=== PATIENT | female | born 1940 | race Caucasian/White ===

== ENCOUNTER 2024-01-27 07:35 | Inpatient (IN) | payer MEDICARE, OTHER, SELFPAY ==
[2024-01-06 11:57] LABS: Hematocrit 31.3 % (37.0-47.0); Mean Corp Hgb Conc. 31.9 g/dL (33.0-37.0); Mean Corpuscular Hgb 27.3 pg (27.0-31.0); Mean Corpuscular Volume 85.5 fL (81.0-99.0); Mean Platelet Volume 9.4 fL (7.4-10.4); Platelet Count 293 10^3/uL (130-400); Red Blood Cell Count 3.66 10^6/uL (4.20-5.40); Red Cell Dist. Width 15.9 % (11.5-14.5); White Blood Cell Count 6.5 10^3/uL (4.8-10.8)
[2024-01-06 12:17] LABS: ALT (SGPT) 15 U/L (0-35); AST (SGOT) 19 U/L (14-36); Alkaline Phosphatase 101 U/L (38-126); Blood Urea Nitrogen 22 mg/dl (7-17); Calcium 9.4 mg/dl (8.4-10.2); Carbon Dioxide 28 mmol/L (22-30); Chloride 100 mmol/L (98-107); Glucose 120 mg/dl (70-99); Potassium 4.2 mmol/L (3.5-5.1); Sodium 141 mmol/L (135-145); Total Bilirubin 0.5 mg/dl (0.2-1.3); Total Protein 6.5 g/dl (6.3-8.2); eGFR > 60.00
[2024-01-06 14:01] VITALS: BMI 29.3
[2024-01-07 10:21] LABS: Glycohemoglobin (HgbA1c) 6.3 % (4.0-5.6)
[2024-01-21 11:47] VITALS: BMI 29.3
[2024-01-27] VITALS (22 sets, daily range): BP systolic 111–151; BP diastolic 63–80; O2SAT 93; BMI 29.3
[2024-01-27] MEDS: TYLENOL 1000 MG PO (07:48)
[2024-01-27] MEDS: CELEBREX 200 MG PO (07:48)
--- NOTE | 2024-01-27 07:51 | PTCARENOTE ---
No IVF due to the IVF shortage.
[2024-01-27] MEDS: TYLENOL 650 MG PO ×3 (13:16→20:02)
[2024-01-27] MEDS: DILAUDID 0.25 MG IV (13:18)
[2024-01-27] MEDS: NSS 1000 IV (13:45)
--- NOTE | 2024-01-27 14:20 | PTCARENOTE ---
Pt received from the PACU via bed. Transport was w/o incident. Pt is AAOx3, HRR, lungs are clear, resp. easy. Pulse ox 96% 2Lnc. Pt's right shoulder with Prima seal dressing C/D/I. No drainage noted at this time. Sling to right arm maintained as
ordered. Ice pack to be used as ordered. Pt instructed on plan of care. Pt verbalized understanding of instructions. Pt denies nausea or pain at this time. Call pabon is within reach.
--- NOTE | 2024-01-27 15:17 | W.PN.ORTHO ---
Today's Communication / Plan
-
D/c when clinically stable.
Assessment
.
Distal Motor Intact: Yes
Dressing:
Clean, dry and intact.
Assessment:
R shoulder OA s/p R Reverse HEATH w/ Dr Chavira 01/27/24
- s/p L Reverse HEATH w/ Dr Chavira 11/15/22
- s/p L TKA, 1999, at an outside facility
DVT prophylaxis - Eliquis at modified dosing, b/l venous foot pumps
- Eliquis 5 mg PO BID to be resumed POD 3 if hemodynamically stable
R sided CP in PACU, improving per pt - sounds related to nerve block as described as 'heaviness' - will order EKG, troponin x3 to r/o cardiac cause
HTN - continue Carvedilol - monitor BP
PAF in the setting of [place] and PACs, asymptomatic - monitor on tele
- Continue BB
- Eliquis as stated above
CAD/[place], 2019, status post PCI with Xience stents x3 - continue statin
- Continue ASA
Remote DVT provoked by
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
- Resume Eliquis as stated above
- Promote frequent and early ambulation as tolerated
Asthma, mild and persistent, and COPD per records - monitor O2
- IS
CVA, >10 years, with residual intermittent dysarthria - continue ASA
GERD - continue PPI therapy
Lower GI bleed, 05/2015, status post blood transfusion - minimize NSAIDs
Peripheral neuropathy - consider Gabapentin or Lyrica
Multifactorial anemia (iron and B12 def) - H&H in AM
- Was advised PO iron by heme but non-compliant; will order IV iron
Pre-operative MRSA positive nasal swab - IV Vanco in addition to IV Ancef
- Contact precautions
- Started on nasal Mupirocin pre-op -> will advise she continue x2 weeks post-surgery as incision is healing
Hyperlipidemia
History of syncope, status post LINQ monitor
Pulmonary nodule
Chronic LATHAM
Hiatal hernia with dysphagia, status post repai
Colon polyps
Multilevel degenerative disc disease
Spinal stenosis
Hypothyroidism with previous Synthroid use
History of recurrent UTIs
Sinus polyps
Osteopenia
ESBL UTI, 04/2019, treated with Levaquin
Prediabetes, A1c 6.3
Has prophylactic Cefadroxil and Compazine prn for d/c
Plan
.
Surgery / Date: R Reverse TSA w/ Dr Chavira 01/27/24
DVT Prophylaxis: Other (Eliquis )
Activity:
Out of bed.
PT/OT
Discharge Plan: Home
Subjective
.
.:
Patient resting comfortably in her room.
Reported R sided chest pain post-procedure, improving w/ pain meds.
Denies any other new complaints.
Vital Signs and Labs
.
Vital Signs and Labs:
Lab Results
01/06/24 11:42
01/06/24 11:42
Temp Pulse Resp BP Pulse Ox
97.4 F 81 16 145/77 96
01/27/24 07:22 01/27/24 07:22 01/27/24 07:22 01/27/24 07:22 01/27/24 07:22
Physical Exam
-
HEENT: No pallor, cyanosis, or jaundice. Throat clear.
NECK: Supple. No JVD.
RESPIRATORY: Lungs clear to auscultation.
CVS: S1, S2 normal. RRR.�
ABDOMEN: Soft, non-tender. No distension.
EXTREMITIES: +RUE sling. Good janitor and radial pulse. Able to wiggle fingers b/l. Strength equal, no calf pain with palpation/dorsiflexion. Calves soft.
SPECIAL EDUCATION TEACHERS: AOx3. No focal deficits. foreign exchange dealer grossly intact
[2024-01-27] MEDS: FERRLECIT 110 MG IV (15:47)
[2024-01-27] MEDS: ANCEF 5 IV (16:15)
[2024-01-27] MEDS: MYRBETRIQ EXTENDED RELEASE 50 MG PO (16:16)
[2024-01-27] MEDS: PROTONIX 40 MG PO (16:16)
[2024-01-27 17:24] LABS: Troponin I < 0.012 ng/ml
[2024-01-27] MEDS: SENOKOT PO (20:00)
[2024-01-27] MEDS: COREG 6.25 MG PO (20:02)
[2024-01-27] MEDS: DECADRON 4 MG PO (20:02)
[2024-01-27] MEDS: COLACE 100 MG PO (20:02)
[2024-01-27] MEDS: ELIQUIS 2.5 MG PO (20:02)
[2024-01-27] MEDS: BACTROBAN 2% OINTMENT 1 APPLIC NASAL (20:03)
[2024-01-27] MEDS: ROXICODONE 5 MG PO (20:12)
[2024-01-27] MEDS: VANCOCIN 200 IV (21:58)
[2024-01-27] MEDS: LIPITOR 40 MG PO (21:59)
[2024-01-27 23:24] LABS: Troponin I < 0.012 ng/ml
[2024-01-28] MEDS: ANCEF 5 IV (00:25)
[2024-01-28] MEDS: TYLENOL 650 MG PO ×3 (00:25→12:31)
[2024-01-28 03:36] VITALS: BP 133/74
[2024-01-28 04:09] LABS: Hematocrit 25.4 % (37.0-47.0); Hemoglobin 8.1 g/dL (12.0-16.0)
[2024-01-28 04:45] LABS: Troponin I < 0.012 ng/ml
[2024-01-28] MEDS: TYLENOL PO (04:51)
[2024-01-28 07:22] VITALS: BP 128/68
[2024-01-28] MEDS: BACTROBAN 2% OINTMENT 1 APPLIC NASAL (08:31)
[2024-01-28] MEDS: COLACE 100 MG PO (08:32)
[2024-01-28] MEDS: COREG 6.25 MG PO (08:32)
[2024-01-28] MEDS: ELIQUIS 2.5 MG PO (08:33)
[2024-01-28] MEDS: LOW STRENGTH ASPIRIN 81 MG PO (08:33)
[2024-01-28] MEDS: PROTONIX 40 MG PO (08:33)
[2024-01-28] MEDS: SENOKOT 17.2 MG PO (08:33)
[2024-01-28] MEDS: DECADRON 4 MG PO (08:33)
[2024-01-28] MEDS: VITAMIN D3 (cholecalciferol) 25 MCG PO (08:34)
[2024-01-28] MEDS: MYRBETRIQ EXTENDED RELEASE 50 MG PO (08:59)
[2024-01-28 09:36] VITALS: BMI 29.3
--- NOTE | 2024-01-28 10:10 | W.PN.ORTHO ---
Today's Communication / Plan
-
Await OT recs.
D/c later today if remaining clinically stable.
Assessment
.
Dressing:
Clean, dry and intact.
Assessment:
R shoulder OA s/p R Reverse HEATH w/ Dr Chavira 01/27/24
- s/p L Reverse TSA w/ Dr Chavira 11/15/22
- s/p L TKA, 1999, at an outside facility
DVT prophylaxis - Eliquis at modified dosing, b/l venous foot pumps
- Eliquis 5 mg PO BID to be resumed POD 3 since hemodynamically stable
R sided CP in PACU, improving per pt - likely related to nerve block as described as 'heaviness' - EKG unchanged, troponin x3 negative to r/o cardiac cause
HTN - continue Carvedilol - BPs stable
PAF in the setting of [place] and PACs, asymptomatic - maintaining NSR on tele
- Continue BB
- Eliquis as stated above
CAD/[place], 2019, status post PCI with Xience stents x3 - continue statin
- Continue ASA
Remote DVT provoked by
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
- Resume Eliquis as stated above
- Promote frequent and early ambulation as tolerated
Asthma, mild and persistent, and COPD per records - O2 stable on RA
- IS
CVA, >10 years, with residual intermittent dysarthria - continue ASA
GERD - continue PPI therapy
Lower GI bleed, 05/2015, status post blood transfusion - minimize NSAIDs
Peripheral neuropathy - consider Gabapentin or Lyrica
Multifactorial anemia (iron and B12 def) - H&H 8.1 POD 1
- s/p IV iron x1; did advise compliance w/ PO iron daily per heme
- Asymptomatic, hemodynamically stable
Pre-operative MRSA positive nasal swab - IV Vanco in addition to IV Ancef
- Contact precautions
- Started on nasal Mupirocin pre-op -> will advise she continue x2 weeks post-surgery as incision is healing
Hyperlipidemia
History of syncope, status post LINQ monitor
Pulmonary nodule
Chronic LATHAM
Hiatal hernia with dysphagia, status post repai
Colon polyps
Multilevel degenerative disc disease
Spinal stenosis
Hypothyroidism with previous Synthroid use
History of recurrent UTIs
Sinus polyps
Osteopenia
ESBL UTI, 04/2019, treated with Levaquin
Prediabetes, A1c 6.3
Has prophylactic Cefadroxil and Compazine prn for d/c
Plan
.
Surgery / Date: R Reverse TSA w/ Dr Chavira 01/27/24
DVT Prophylaxis: Other (Eliquis )
Activity:
Out of bed.
PT/OT
Discharge Plan: Home
Subjective
.
.:
Patient resting comfortably in bed this AM.
R shoulder pain overall well tolerated w/ current pain meds.
Chest pain reported yesterday resolved - EKG unchanged, troponin x3 negative.
Eager for possible d/c today.
Vital Signs and Labs
.
Vital Signs and Labs:
Lab Results
01/28/24 03:59
01/06/24 11:42
Temp Pulse Resp BP Pulse Ox
98.2 F 93 14 128/68 98
01/28/24 07:22 01/28/24 08:32 01/28/24 07:22 01/28/24 08:32 01/28/24 08:40
Non-invasive Hgb result: 10.3
Physical Exam
-
HEENT: No pallor, cyanosis, or jaundice. Throat clear.
NECK: Supple. No JVD.
RESPIRATORY: Lungs clear to auscultation.
CVS: S1, S2 normal. RRR.� No murmur, rub or gallop.
ABDOMEN: Soft, non-tender. No distension.
EXTREMITIES: + RUE sling. Good hydraulic modeling engineer/radial pulses b/l. Able to wiggle fingers b/l. Strength equal, no calf pain with palpation/dorsiflexion.
STUDIO PRODUCER: AOx3. No focal deficits. through operator grossly intact
[2024-01-28 10:32] VITALS: BMI 29.3
--- NOTE | 2024-01-28 10:48 | W.DS.TRANS ---
DC Summary - Summer Law Clerk
-
Discharge Instructions:
Sleep Apnea Risk Low
Discharge Diagnosis/Procedures R shoulder OA s/p R Reverse TSA w/ Dr Chavira
24
Diet Regular
Activity As tolerated
Additional Activity Non-weightbearing right upper extremity
Driving Restrictions Not until seen by your Dr
Bathing Restrictions OK to Shower
Wound Care Leave dressing on until seen by surgeon's office
for follow-up
Instructions:
Stand-Alone Forms: Total Shoulder Replacement D/C
Changes to Home Medications: Yes
Discharge Medications:
DC Medications w/original date entered in [employer]
nitroglycerin 0.4 mg sublingual tablet 0.4 mg sublingual [id number] PRN chest pain 08/18/14
atorvastatin 40 mg tablet 40 mg PO HS High Cholesterol 06/17/15
carvedilol 6.25 mg tablet 6.25 mg PO BID Heart Disease/Condition 04/26/19
Vitamin D3 1,000 units PO DAILY Supplement 10/21/22
omeprazole 20 mg capsule,delayed release 20 mg PO DAILY Gastrointestinal Issue 10/21/22
apixaban 5 mg tablet (Eliquis) 5 mg PO BID Blood Clot Prevention/Tx 01/21/24
aspirin 81 mg chewable tablet 81 mg PO DAILY Blood Clot Prevention/Tx 01/21/24
fluticasone fur. 200 mcg-umeclid 62.5 mcg-vilant 25 mcg inhalat.powder (Trelegy Ellipta) 1 inh inhalation DAILY Lung/Breathing Issues 01/21/24
mirabegron 50 mg tablet,extended release 24 hr (Myrbetriq) 50 mg PO DAILY OVERACTIVE BLADDER 01/21/24
Saccharomyces boulardii 250 mg capsule (Florastor) 250 mg PO BID #14 caps 01/28/24
acetaminophen 500 mg tablet (Tylenol Extra Strength) 1,000 mg (2 x 500 mg) PO Q6H #60 tabs 01/28/24
apixaban 2.5 mg tablet (Eliquis) 2.5 mg PO BID #3 tabs 01/28/24
cefadroxil 500 mg capsule 500 mg PO BID #14 caps 01/28/24
dexamethasone 4 mg tablet 4 mg PO Q12 Anti-inflammatory #7 tabs 01/28/24
docusate sodium 100 mg capsule 100 mg PO BID #30 caps 01/28/24
ferrous sulfate 325 mg (65 mg iron) tablet (Feosol) 325 mg PO DAILY #30 tabs 01/28/24
mupirocin 2 % topical ointment 1 applic topical BID Infection #0 grams 01/28/24
oxycodone 5 mg tablet 5 - 10 mg (1 - 2 x 5 mg) PO Q6H PRN moderate-severe pain #30 tabs 01/28/24
prochlorperazine maleate 5 mg tablet (Compazine) 5 mg PO TID PRN nausea and vomiting #30 tabs 01/28/24
sennosides 8.6 mg tablet (Senna Laxative) 17.2 mg (2 x 8.6 mg) PO BID #30 tabs 01/28/24
Home Medication Changes
Saccharomyces boulardii 250 mg capsule (Florastor) 250 mg PO BID #14 caps 01/28/24
acetaminophen 500 mg tablet (Tylenol Extra Strength) 1,000 mg (2 x 500 mg) PO Q6H #60 tabs 01/28/24
apixaban 2.5 mg tablet (Eliquis) 2.5 mg PO BID #3 tabs 01/28/24 - until POD 3
cefadroxil 500 mg capsule 500 mg PO BID #14 caps 01/28/24
dexamethasone 4 mg tablet 4 mg PO Q12 Anti-inflammatory #7 tabs 01/28/24
docusate sodium 100 mg capsule 100 mg PO BID #30 caps 01/28/24
ferrous sulfate 325 mg (65 mg iron) tablet (Feosol) 325 mg PO DAILY #30 tabs 01/28/24
mupirocin 2 % topical ointment 1 applic topical BID Infection #0 grams 01/28/24
oxycodone 5 mg tablet 5 - 10 mg (1 - 2 x 5 mg) PO Q6H PRN moderate-severe pain #30 tabs 01/28/24
prochlorperazine maleate 5 mg tablet (Compazine) 5 mg PO TID PRN nausea and vomiting #30 tabs 01/28/24
sennosides 8.6 mg tablet (Senna Laxative) 17.2 mg (2 x 8.6 mg) PO BID #30 tabs 01/28/24
Pending Results: No
[2024-01-28 11:32] VITALS: BP 114/63
--- NOTE | 2024-01-28 13:49 | CM ---
Met with pt at bedside
Pt reports she lives with her son and daughter--in-law in a 2 story home; no steps to enter, 1st fl set-up
Independent, ambulates with cane or rolling walker
DME - rolling walker, single point cane
SNF - in past - unsure of name
HH - [facility] in past
Has ride at discharge
PCP - Zoya Lovett
Pharm - [facility] - [place]
Discussed IMM
Pl t return home with family assist
OT recs pend
Plan - anticipate home no needs
[2024-01-28 13:57] VITALS: BP 129/67; PULSE 93
[2024-01-28 15:03] VITALS: BP 119/63
== END 2024-01-28 16:55 | disposition home or self-care (01) | DRG 483 ==
LOC: 2 SOUTH 07:35
PROVIDERS: Physician Assistant; ADMITTING PHYSICIAN Specialist; FAMILY PHYSICIAN Emergency Medicine; REFERRING PHYSICIAN Internal Medicine Nephrology
PROC: 0RRJ00Z Replacement of Right Shoulder Joint with Reverse Ball and Socket Synthetic Substitute, Open Approach (ICD-10-PCS; 2024-01-27)
DX: M19.011 Primary osteoarthritis, right shoulder (principal); Z79.01 Long term (current) use of anticoagulants; I10 Essential (primary) hypertension; I25.2 Old myocardial infarction; I48.0 Paroxysmal atrial fibrillation; I49.1 Atrial premature depolarization; I25.10 Atherosclerotic heart disease of native coronary artery without angina pectoris; J45.30 Mild persistent asthma, uncomplicated; J44.89 Other specified chronic obstructive pulmonary disease; Z77.22 Contact with and (suspected) exposure to environmental tobacco smoke (acute) (chronic); D64.9 Anemia, unspecified; R07.89 Other chest pain; E53.8 Deficiency of other specified B group vitamins; Z91.199 Patient's noncompliance with other medical treatment and regimen due to unspecified reason; Z79.82 Long term (current) use of aspirin; Z95.5 Presence of coronary angioplasty implant and graft; Z22.322 Carrier or suspected carrier of Methicillin resistant Staphylococcus aureus; Z86.711 Personal history of pulmonary embolism; Z86.718 Personal history of other venous thrombosis and embolism; I69.322 Dysarthria following cerebral infarction; G62.9 Polyneuropathy, unspecified
CPT/HCPCS: 36415; 73020; 80053; 83036; 84484; 85014; 85018; 85027; 86850; 86900; 86901; 86920; 86922; 87070; 87147; 93005; 97110; 97166; 97535; C1713; C1776; J2916